=== PATIENT | female | born 1950 | race Caucasian/White ===

== ENCOUNTER 2020-05-16 07:47 | Emergency (ER) | payer OTHER ==
[~2020-05-16] VITALS: Ht 167.6 cm; Wt 79.8 kg
[~2020-05-16 07:47] MED LIST: CATAFLAM50 MG PO; FOSAMAX; HYZAAR 50/12.51 TAB PO; ORPH100T PO; ZOCOR20 MG PO
== END 2020-05-16 10:25 | disposition home or self-care (01) ==
LOC: ER 07:47
DX: M25.511 Pain in right shoulder (principal); M25.562 Pain in left knee